=== PATIENT | female | born 1975 ===

== ENCOUNTER 2017-06-10 13:00 | Emergency (ER) | payer BC, OTHER ==
[2017-06-10 13:10] VITALS: BP 128/75; PULSE 93; RESP 16; TEMP 98.9; O2SAT 100
[2017-06-10] MEDS ORDERED: Oxycodone/Acetaminophen 5/325 mg Tab PO STA (13:22)
[2017-06-10] MEDS ORDERED: Amoxicillin-Clav 875-125 mg Tab PO STA (13:22)
[2017-06-10] MEDS ORDERED: Oxycodone/Acetaminophen 5/325 mg Tab ONE (13:32)
[2017-06-10] MEDS ORDERED: Amoxicillin-Clav 875-125 mg Tab PO ONE (13:34)
--- NOTE | 2017-06-10 13:46 | ED PDOC ---
Upper Extremity Pain/Injury Time Seen by Provider: 06/10/17 13:10 Chief Complaint (Nursing): Bite Chief Complaint (Provider): Bite History Per: Patient History/Exam Limitations: no limitations Onset/Duration Of Symptoms: Mins (x 1) Current Symptoms Are (Timing): Still Present Additional Complaint(s): Orquidea is a 42 year old female who presents to the emergency department for evaluation of dog bite to right forearm, onset prior to arrival. Patients states 2 dogs were fighting where she sustained a bite to her right forearm. Dog is up-to-date with vaccinations. Patient reports she had her tetanus shot last year. PMD: Manuel Downey Past Medical History Reviewed: Historical Data, Nursing Documentation, Vital Signs Vital Signs: Last Vital Signs Temp 98.9 F 06/10/17 13:06 Pulse 93 H 06/10/17 13:06 Resp 16 06/10/17 13:06 BP 128/75 06/10/17 13:06 Pulse Ox 100 06/10/17 13:06 - Medical History PMH: Denies: Asthma, Diabetes, HTN - Surgical History Surgical History: No Surg Hx - Family History Family History: States: Unknown Family Hx - Immunization History Hx Tetanus Toxoid Vaccination: Yes - Home Medications Home Medications: Ambulatory Orders Medication Instructions Recorded Amoxicillin/Clavulanate [Augmentin 1 tab PO BID #14 tab 06/10/17 875 MG-125 MG] Ibuprofen [Motrin] 600 mg PO Q6 #20 tab 06/10/17 oxyCODONE/Acetaminophen [Percocet 1 ea PO Q6 PRN #10 tab 06/10/17 5/325 mg Tab] - Allergies Allergies/Adverse Reactions: Allergies Allergy/AdvReac Type Severity Reaction Status Date / Time No Known Allergies Allergy Verified 06/10/17 13:06 Review of Systems ROS Statement: Except As Marked, All Systems Reviewed And Found Negative Musculoskeletal: Positive for: Other (Right Forearm Injury) Physical Exam - Reviewed Nursing Documentation Reviewed: Yes Vital Signs Reviewed: Yes - Physical Exam Extremity: Positive for: Other (2 cm laceration to the dorsal aspect noted, 1 cm puncture wound to the volar aspect surrounding with ecchymosis noted) - ECG O2 Sat by Pulse Oximetry: 100 (RA) Pulse Ox Interpretation: Normal Medical Decision Making Medical Decision Making: Time:12:22 Plan: - Augmentin 875 MG-125 MG Tab - Motrin Tab - Percocet 5/325 mg Tab XR: NAD, as read by ROBBIE Wound care discussed. Scribe Attestation: Documented by Donal Sidhu, acting as a scribe for CHAVO Barbour Provider Scribe Attestation: All medical record entries made by the Scribe were at my direction and personally dictated by me. I have reviewed the chart and agree that the record accurately reflects my personal performance of the history, physical exam, medical decision making, and the department course for this patient. I have also personally directed, reviewed, and agree with the discharge instructions and disposition. Disposition - Clinical Impression Clinical Impression: Animal bite wound - Patient ED Disposition Is Patient to be Admitted: No - Disposition Disposition: Routine/Home Disposition Time: 16:11 Condition: STABLE Prescriptions: Amoxicillin/Clavulanate [Augmentin 875 MG-125 MG] 1 tab PO BID #14 tab Ibuprofen [Motrin] 600 mg PO Q6 #20 tab oxyCODONE/Acetaminophen [Percocet 5/325 mg Tab] 1 ea PO Q6 PRN #10 tab PRN Reason: Pain, Severe (8-10) Instructions: Animal Bite (ED) Forms: [employer] ([place])
--- NOTE | 2017-06-10 15:24 | RAD ---
PROCEDURE: Radiographs of the right forearm. HISTORY: pain s/p dog bite COMPARISON: None available. TECHNIQUE: Frontal and lateral views obtained. FINDINGS: BONES: No acute displaced fracture. JOINT SPACES: No dislocation. OTHER FINDINGS: Soft tissue swelling and irregularity consistent with laceration. Subcutaneous emphysema noted at the midforearm. No evidence of radiopaque foreign body. IMPRESSION: Soft tissue swelling and irregularity consistent with laceration. Subcutaneous emphysema noted at the midforearm. No evidence of radiopaque foreign body. No acute displaced fracture, dislocation, or significant joint effusion identified. If symptoms persist, or if there is continued clinical concern, x-ray follow-up in 7-10 days should be considered.
== END 2017-06-10 15:19 | disposition home or self-care (01) ==
LOC: H.ER 13:00
DX: S51.831A Puncture wound without foreign body of right forearm, initial encounter (principal); W54.0XXA Bitten by dog, initial encounter; Y92.89 Other specified places as the place of occurrence of the external cause
CPT/HCPCS: 73090; 81025; 96372; 99284; J2270